=== PATIENT | female | born 1960 | race Caucasian/White ===

== ENCOUNTER → 2016-11-06 12:30 | Outpatient (CLI) | payer BC ==
[~2016-11-06 12:30] MED LIST: HYDROCHLOROTHIA25 MG PO; MOTRIN800 MG PO; PERCOCET 10/3251 TA1 PO; VIVELLE-DO1 PATCH.B1 TD
== END | disposition home or self-care (01) ==
LOC: D.MAMMO 10-16 15:30
DX: Z12.31 Encounter for screening mammogram for malignant neoplasm of breast (principal)

== ENCOUNTER → 2016-11-29 21:54 | Outpatient (CLI) | payer BC | END | disposition home or self-care (01) | LOC: D.MAMMO 14:30 | DX: R92.8 Other abnormal and inconclusive findings on diagnostic imaging of breast (principal) ==

== ENCOUNTER → 2017-06-11 16:52 | Outpatient (CLI) | payer BC | END | disposition home or self-care (01) | LOC: D.MAMMO 09:00 | DX: R87.619 Unspecified abnormal cytological findings in specimens from cervix uteri (principal) ==

== ENCOUNTER → 2017-11-26 16:46 | Outpatient (CLI) | payer BC | END | disposition home or self-care (01) | LOC: D.MAMMO 11-18 11:00 → D.US 11-18 13:00 → D.MAMMO 11:00 | DX: N63.12 Unspecified lump in the right breast, upper inner quadrant (principal) ==

== ENCOUNTER → 2018-05-27 18:41 | Outpatient (CLI) | payer BC | END | disposition home or self-care (01) | LOC: D.MAMMO 18:41 | DX: R92.8 Other abnormal and inconclusive findings on diagnostic imaging of breast (principal) ==

== ENCOUNTER → 2019-10-20 13:15 | Outpatient (CLI) | payer BC | END | disposition home or self-care (01) | LOC: D.MAMMO 13:15 | PROVIDERS: ATTEND Family Medicine | DX: Z12.31 Encounter for screening mammogram for malignant neoplasm of breast (principal) ==

== ENCOUNTER 2019-11-04 16:30 | Outpatient (CLI) | payer BC | END 2019-11-04 23:59 | disposition home or self-care (01) | LOC: D.MAMMO 16:30 | PROVIDERS: ATTEND Clinical Nurse Specialist Adult Health | DX: R92.8 Other abnormal and inconclusive findings on diagnostic imaging of breast (principal) ==